=== PATIENT | male | born 1960 | race Caucasian/White ===

== ENCOUNTER 2023-05-07 23:20 | Emergency (ER) | payer SELFPAY ==
[2023-05-07 23:38] VITALS: BP 190/126; PULSE 90; RESP 16; TEMP 36.4; O2SAT 92
--- NOTE | 2023-05-07 23:51 | ED_ITS ---
HPI - Extremity Injury (Upper) General Chief Complaint: Extremity Injury, Upper Stated Complaint: FELL IN HIS HOME Time Seen by Provider: 05/07/23 23:50 Source: patient Mode of arrival: walk-in Limitations: no limitations History of Present Illness HPI narrative: Patient presents to emergency department complaining of right hand injury. Patient states he had been drinking earlier. he did not drink a lot because he was able to drive home. He was trying to help his mother and she had left a laundry basket on the floor which caused him to trip over it. On his way down he started to break the fall by grabbing the dresser and he hit his right 4th digit and to the dresser causing a laceration and deformity. Patient denies hitting his head or any loss consciousness. He denies any other injury. He denies any paresthesias.He denies any weakness. Patient does not take any blood thinners. He denies any neck pain, chest pain, shortness of breath. Denies any lower extremity edema. He denies any flank pain, hematuria, dysuria. He denies any abdominal pain. Patient is nauseated and thinks that he could vomit. His tetanus shot is not up-to-date. Does not remember his medication ALLERGIES. Related Data Previous Rx's Medication Instructions Recorded cephalexin 500 mg capsule 500 mg PO TID 7 days #21 caps 05/08/23 Allergies Allergy/AdvReac Type Severity Reaction Status Date / Time No Known Drug Allergies Allergy Verified 05/07/23 23:53 Review of Systems ROS Status of ROS 10 or more systems reviewed and unremarkable except as noted in history and below Exam Narrative Exam Narrative: Nurses notes and vital signs reviewed and patient is not hypoxic. General: Nontoxic, Well-appearing and in no apparent distress. Skin: Warm, dry, no pallor noted. No Rash Head: Normocephalic, atraumatic. Neck: Supple, non-tender. Eye: Pupils are equal, round and EOMI. No scleral icterus. Ears, Nose, Mouth, and Throat: TM clear,No hemotympanum, no posterior oropharynx erythema or nasal mucosal hypertrophy, uvula is mid-line Oral mucosa is moist Cardiovascular: Regular Rate and Rhythm without murmur, gallop or rub. Respiratory: No accessory muscle use or respiratory distress. Lungs are clear to auscultation, no wheezing, rales or rhonchi Chest Wall: no tenderness Back: No midline thoracic or lumbar vertebral tenderness. No CVA tenderness Musculoskeletal: Or deformity to the right 4th PIP with transverse palmar laceration over the 4th PIP. The proximal joint the bone can be visualized ventrally and the distal aspect is placed dorsally. Range of motion is limited. Capillary refill is brisk. There is no bony tenderness to the proximal fragment. There is no active bleeding. Sensation to the distal thumb, middle finger, ring finger and pinky. no calf or popliteal tenderness, no lower extremity edema/swelling GI: Abdomen is soft, non-distended. Normal bowel sounds. No tenderness to palpation. No rebound, guarding, or rigidity noted. Neurological: A&O x4. No cranial nerve dysfunction observed. No truncal ataxia. Moves all extremities. Sensation intact. Psychiatric: Cooperative and interactive. Normal mood and affect. Constitutional Vital Signs, click to edit/add: Last Vital Signs Temp 97.5 F L 05/07/23 23:38 Pulse 90 05/07/23 23:38 Resp 16 05/07/23 23:38 BP 190/126 H 05/07/23 23:38 Pulse Ox 92 L 05/07/23 23:38 O2 Del Method Room Air 05/07/23 23:38 Course Vital Signs Vital signs: Vital Signs Temperature 97.5 F L 05/07/23 23:38 Pulse Rate 90 05/07/23 23:38 Respiratory Rate 16 05/07/23 23:38 Blood Pressure 190/126 H 05/07/23 23:38 Pulse Oximetry 92 L 05/07/23 23:38 Oxygen Delivery Method Room Air 05/07/23 23:38 Temperature 97.5 F L 05/07/23 23:38 Pulse Rate 90 05/07/23 23:38 Respiratory Rate 16 05/07/23 23:38 Blood Pressure 190/126 H 05/07/23 23:38 Pulse Oximetry 92 L 05/07/23 23:38 Oxygen Delivery Method Room Air 05/07/23 23:38 MDM - Extremity Injury (Upper) MDM Narrative Medical decision making narrative: PROCEDURE:Right 4th pip FINGER CLOSED REDUCTION ?By applying gentle longitudinal traction, I was able to reduce the dislocated finger without much difficulty. Clinically the patient's function was markedly improved. There distal cap refill was less than 2 seconds.?? And the previous aforementioned dislocation, clinically appear to be resolved.?xray reviewed. The patient tolerated the procedure well, and was placed in an AlumaFoam splint. Recommended follow up as we discussed, and return if any issues. Laceration repair. The patient was identified by me. Procedure risks and benefits were discussed with patient and/or family. Area was prepped and draped in a sterile fashion. 1ml lidocaine 1% without epinephrine were injected. wound was inspected in full range of motion. Adequate anesthesia was obtained. 4 sutures, interrupted, nylon 4.0 were used to obtain adequate closure. The edges were well approximated. Antibiotic ointment was applied. Nonstick dressing was applied with pressure gauze and Lenin wrap. Patient is advised the need to follow-up with orthopedic surgeon. He was given 1 g of Ancef and started on Keflex prophylactically at home. The patient has voiced that he will not follow up with any specialist unless he has any compl ication. I've advised the patient this does not in his best interest assistance caused him to have permanent disability, loss of limb or . The patient understands. He will follow up with Belinda stoll. Hi is advised sutures need to be removed in 10 days.Wound care instructions provided to the patient. At this time the patient is without objective evidence of an acute process requiring hospitalization or inpatient management. The patient has remained hemodynamically stable. No additional indication for emergent studies at this time. I answered all questions. Discussed discharge instructions including standard anticipatory guidance and what should prompt a return to the emergency department, including if they get worse are not getting better or develops any new or concerning symptoms. I've given them specific time frame in which to follow-up, and who to follow-up with. The patient demonstrates understanding. Patient is nontoxic and stable for discharge with outpatient follow-up. This note was created with the assistance of a speech recognition program. Although the intention is to generate documents that actually reflects the content of the visit, no guarantees can be provided that every mistake has been identified and corrected by editing. Discharge Plan Discharge Chief Complaint: Extremity Injury, Upper Clinical Impression: Finger laceration with complication, Open dislocation of right ring finger Patient Disposition: Home, Self-Care Time of Disposition Decision: 01:27 Condition: Good Mode of Transportation: Private Vehicle Prescriptions / Home Meds: New cephalexin 500 mg capsule 500 mg PO TID 7 Days Qty: 21 0RF Instructions: Finger Laceration (ED), Finger Dislocation (ED) Additional Instructions: Wound care is discussed. Follow up with the orthopedic surgeon as discussed. Watch for signs of infection. Return to the emergency department with a possible concerns. Sutures need to be removed in 10 days. Stand Alone Forms: Portal Instructions Referrals: Nolan Stoll DO [Primary Care Provider] - 1 week Chago Ott MD [Physician] - 1 week
--- NOTE | 2023-05-07 23:53 | XR_ITS ---
[facility] [id number] Patient Name: ANDRIY BRYSON MRN: [id number] date: 1960 Sex: M Assigned Patient Location: ER Current Patient Location: ED.MAIN Accession/Order Number: [id number] Exam Date: 05/07/2023 23:25 Report Date: 05/08/2023 01:09 At the request of: NANCY LAYNE Procedure: XR hand RT min 3V EXAM: XR hand RT min 3V HISTORY: fall COMPARISON: None. TECHNIQUE: 3 views of the right hand were obtained. FINDINGS: No acute fracture or dislocation is seen. There are mild scattered degenerative changes. There is a radiopaque foreign body within the soft tissues at the ulnar aspect of the carpus. XR/XR hand RT min 3V IMPRESSION: 1. No acute fracture or dislocation of the right hand or fingers is seen. If pain persists, repeat radiographs are recommended in 7-10 days. Electronically authenticated by: Collin PIMENTEL Date: 05/08/2023 01:09
[2023-05-08] MEDS: CEFAZOLIN SODIUM 1,000 MG, WATER FOR INJECTION,STERILE 2.5 ML IM (00:50)
[2023-05-08] MEDS: BACITRACIN 0.9 GM PACKET 1 PACKET TOPICAL (00:50)
[2023-05-08] MEDS: ADACEL DIPH,PERTUSS(ACELL),TET VAC/PF 0.5 ML ADULT SYRINGE IM (00:51)
--- NOTE | 2023-05-08 01:06 | PC.NURSE ---
patient states earlier in the night he was drinking and fell down hitting his right hand against a dresser and then landing on it. patient presents with laceration right middle finger and finger appears bent/dislocated . patient denies any other injuries. denies head injury or LOC. bilateral upper extremity pulses and sensation remain intact. denies any blood thinners. unsure of last tetanus.
== END 2023-05-08 02:02 | disposition home or self-care (01) ==
PROVIDERS: Emergency Provider Emergency Medicine; PCP Internal Medicine
DX: S63.284A Dislocation of proximal interphalangeal joint of right ring finger, initial encounter (principal); S61.214A Laceration without foreign body of right ring finger without damage to nail, initial encounter; Z23 Encounter for immunization; W18.09XA Striking against other object with subsequent fall, initial encounter
CPT/HCPCS: 12001; 26770; 73130; 90471; 90715; 96372; 99284

== ENCOUNTER 2025-09-04 11:37 | Emergency (ER) | payer SELFPAY ==
[2025-09-04] VITALS (91 sets, daily range): BP systolic 138–251; BP diastolic 74–169; PULSE 67–117; TEMP 36.9; O2SAT 90–99; BMI 30.1
--- NOTE | 2025-09-04 11:51 | ECG_ITS ---
[facility] Test Date: 2025-09-04 Pat Name: ANDRIY BRYSON Department: Room: - Gender: Male [place] Head[employer] Operator: : 1960 Requested By: [id number] Order Number: [id number] Reading MD: DAVID TO Measurements Intervals [place] Rate: 113 P: 34 CT: 156 QRS: 31 QRSD: 88 T: 30 QT: 348 QTc: 415 Interpretive Statements 1120 Sinus tachycardia 2420 RSR (QR) in lead V1/V2, consistent with right ventricular conduction delay [address] depression [address] & [place] abnormality 5220 Possible left ventricular hypertrophy 6220 Possible left atrial enlargement 9150 abnormal ECG No previous ECG available for comparison Electronically Signed On 09-04-2025 16:43:22 EST by DAVID TO
--- NOTE | 2025-09-04 11:51 | XR_ITS ---
[facility] [place] [facility] [id number] Patient Name: ANDRIY BRYSON MRN: [id number] date: 1960 Sex: M Assigned Patient Location: ED.MAIN Current Patient Location: ED.MAIN Accession/Order Number: [id number] Exam Date: 09/04/2025 12:18 Report Date: 09/04/2025 12:57 At the request of: ANNE MUÑOZ MD Procedure: XR chest 1V PORTABLE AP ERECT CHEST 1200 hours CLINICAL HISTORY: Chest pain and increased heart rate COMPARISON: None The heart is within normal limits. There is no vascular congestion. The lungs, as visualized, are clear. There is no effusion or pneumothorax. The osseous structures are intact. XR/XR chest 1V IMPRESSION: NO ACUTE FINDINGS Impression dictated by: Vangie Crowe M.D. 09/04/2025 12:57 PM Dictation Location: [facility] Electronically authenticated by: [id number] Y Date: 09/04/2025 12:57
[2025-09-04] MEDS: NITROGLYCERIN 0.4 MG BOTTLE SL (12:08)
[2025-09-04 12:22] LABS: Hematocrit 46.7 % (42.0-54.0); Hemoglobin 16.0 g/dL (14.0-18.0); Immature Granulocytes Abs Auto 0.03 10^3/uL (0.00-0.03); Immature Granulocytes Pct Auto 0.3 % (0.0-0.5); Lymphocytes Absolute Auto 2.1 10^3/uL (1.2-3.8); Mean Corpuscular HGB Conc 34.3 g/dL (29.9-35.2); Mean Corpuscular Hemoglobin 30.5 pg (25.9-34.0); Mean Corpuscular Volume 89.0 fL (80.0-94.0); Platelet Count 249 10^3/uL (150-450); Red Blood Count 5.25 10^6/uL (4.70-6.10); White Blood Count 9.2 10^3/uL (4.0-11.0)
--- NOTE | 2025-09-04 12:22 | ECG_ITS ---
[facility] Test Date: 2025-09-04 Pat Name: ANDRIY BRYSON Department: Room: - Gender: Male Credit Professional: : 1960 Requested By: [id number] Order Number: [id number] Reading MD: DAVID TO Measurements Intervals [place] Rate: 89 P: 36 [place]: 156 QRS: 30 QRSD: 80 T: 39 QT: 390 QTc: 437 Interpretive Statements 1100 Sinus rhythm [address] depression 6220 Possible left atrial enlargement 9150 abnormal ECG Compared to ECG 09/04/2025 11:59:52 Sinus tachycardia no longer present ST (T wave) deviation still present Electronically Signed On 09-04-2025 16:43:24 EST by DAVID TO
[2025-09-04] MEDS: ASPIRIN 81 MG TAB.CHEW 324 MG PO (12:25)
[2025-09-04 12:37] LABS: Alanine Aminotransferase 31 U/L (16-63); Albumin Globulin Ratio 1.1; Albumin Level 4.3 g/dL (3.4-5.0); Alkaline Phosphatase 81 U/L (46-116); Anion Gap 14.3; Aspartate Amino Transferase 27 U/L (15-37); Blood Urea Nitrogen 14.0 mg/dL (7.0-18.0); Calcium 8.9 mg/dL (8.5-10.1); Carbon Dioxide 29.8 mmol/L (21.0-32.0); Chloride 100 mmol/L (98-107); Estimated GFR (African America >60 (>=60 mL/min/1.73m^2); Estimated GFR (Non-African Ame >60 (>=60 mL/min/1.73m^2); Globulin 3.9 g/dL; Glucose 110 mg/dL (74-106); INR 1.04; Magnesium 1.9 mg/dL (1.8-2.4); Potassium 3.1 mmol/L (3.5-5.1); Prothrombin Time 10.9 sec (9.0-11.6); Sodium 141 mmol/L (136-145); Total Protein 8.2 g/dL (6.4-8.2)
[2025-09-04] MEDS: LABETALOL HCL 20 MG/4 ML SYRINGE 10 MG IVP (13:38)
[2025-09-04] MEDS: NICARDIPINE IN NACL, ISO-OSM 40 MG/200 ML PIGGYBACK 25 MG IV ×2 (15:12→22:05)
--- NOTE | 2025-09-04 15:27 | ED_ITS ---
HPI HPI - General Adult General Chief complaint: Arrhythmia/Palpitations Stated complaint: CHEST PAIN Time Seen by Provider: 09/04/25 11:50 Source: patient Mode of arrival: walk-in History of Present Illness HPI narrative: The patient have no previous medical history but he does not actually have a primary care is coming to the ER after he started having his heart racing as well as chest discomfort and right sided neck pain, patient mentioned that he have a history of showing tobacco he does not have any medical history in the family that he knows of of cardiac issues The patient denies any other concerns when asked about headache he mentioned that sometime he will get headaches No specific chest pain at the moment no numbness tingling or any other concerns although he mentions sometime he feels this numbness in the small finger of the left hand that he does not have at the moment Patient mentioned that every time he exerts himself most of the time he will feel this right sided neck pain as well Related Data Home Medications ?Medication ?Instructions ?Recorded ?Confirmed No Known Home Medications 09/04/2508/20 Allergies Allergy/AdvReac Type Severity Reaction Status Date / Time No Known Drug Allergies Allergy Verified 09/04/25 11:47 Review of Systems ROS Status of ROS 10 or more systems reviewed and unremark able except as noted in history and below PFSH PFSH Social History Little interest or pleasure in doing things: not at all Feeling down, depressed, or hopeless: not at all Exam Narrative Exam Narrative: Nurses notes and vital signs reviewed and patient is not hypoxic. General: Well-appearing and in no apparent distress. Skin: Warm, dry, no pallor noted. No rash. Head: Normocephalic, atraumatic. Neck: Supple, non-tender. Cardiovascular: Regular Rate and Rhythm without murmur, gallop or rub. Respiratory: No accessory muscle use or respiratory distress. Lungs are clear to auscultation, no wheezing, rales or rhonchi Chest Wall: no tenderness Back: No midline thoracic or lumbar vertebral tenderness. No CVA tenderness Musculoskeletal: normal ROM, no calf or popliteal tenderness, no lower extremity edema/swelling GI: Abdomen is soft, non-distended. Normal bowel sounds. No masses appreciated. No tenderness to palpation. No rebound, guarding, or rigidity noted. Neurological: A&O x4. No cranial nerve dysfunction observed. No truncal ataxia. Moves all extremities. Sensation intact. Psychiatric: Cooperative and interactive. Normal mood and affect. Constitutional Vital Signs, click to edit/add: Last Vital Signs Temp 98.5 F 09/04/25 11:51 Pulse 98 H 09/04/25 18:40 Resp 15 09/04/25 18:40 BP 147/74 H 09/04/25 18:30 Pulse Ox 97 09/04/25 18:10 O2 Del Method Room Air 09/04/25 12:23 Course Vital Signs Vital signs: Vital Signs Temperature 98.5 F 09/04/25 11:51 Pulse Rate 114 H 09/04/25 11:51 Respiratory Rate 18 09/04/25 11:51 Blood Pressure 232/148 H 09/04/25 11:51 Pulse Oximetry 97 09/04/25 11:51 Oxygen Delivery Method Room Air 09/04/25 11:51 Temperature 98.5 F 09/04/25 11:51 Pulse Rate 98 H 09/04/25 18:40 Respiratory Rate 15 09/04/25 18:40 Blood Pressure 147/74 H 09/04/25 18:30 Pulse Oximetry 97 09/04/25 18:10 Oxygen Delivery Method Room Air 09/04/25 12:23 Medical Decision Making MDM Narrative Medical decision making narrative: On arrival the patient was found to have elevated blood pressure of 230/140 with a manual reading with his EKG showing no ST elevation but it did show some mild subtle ST depression in V5 and V6 The patient had no previous EKG for comparison and initially was started by giving him nitroglycerin to control his symptoms mostly the neck pain on the right that could be cardiac The patient then had had the pain resolved after the first nitro but his blood pressure initially dropped from 230-140 and went back to 190 The patient then his blood pressure went up to the 200s again and the first test of troponin was negative the second 1 went from 20s to 70 I did discuss the case with the telecom specialist on-call and she agreed that we need to control the blood pressure better and also trend the troponin the patient was started on nicardipine to control the blood pressure The third troponin was 170 and that is an elevation from the 70 that the patient had before I did discuss the case with the telecom specialist on-call and she initially recommended further trending of the troponin but after discussion of the case with the hospitalist in our facility commended transfer to [facility] for further cardiac workup Awaiting to discuss the case with the [facility] hospitalist the patient care will be transferred to Dr. Walker Lab Data Labs: Lab Results 09/04/25 09/04/25 09/04/25 Range/Units 12:00 13:25 16:06 WBC 9.2 (4.0-11.0) 10^3/uL RBC 5.25 (4.70-6.10) 10^6/uL Hgb 16.0 (14.0-18.0) g/dL Hct 46.7 (42.0-54.0) % MCV 89.0 (80.0-94.0) fL MCH 30.5 (25.9-34.0) pg MCHC 34.3 (29.9-35.2) g/dL RDW 13.0 (11.0-15.0) % Plt Count 249 (150-450) 10^3/uL MPV 10.5 (9.5-13.5) fL Neut % (Auto) 64.2 (43.0-75.0) % Lymph % (Auto) 22.8 (20.5-60.0) % [place] % (Auto) 9.6 (1.7-12.0) % Eos % (Auto) 2.6 (0.9-7.0) % Baso % (Auto) 0.5 (0.2-2.0) % Neut # (Auto) 5.9 (1.4-6.5) 10^3/uL Lymph # (Auto) 2.1 (1.2-3.8) 10^3/uL [place] # (Auto) 0.9 H (0.3-0.8) 10^3/uL Eos # (Auto) 0.2 (0.0-0.7) 10^3/uL Baso # (Auto) 0.1 (0.0-0.1) 10^3/uL Abs Immat Gran (auto) 0.03 (0.00-0.03) 10^3/uL Imm/Tot Granulo (auto) 0.3 (0.0-0.5) % PT 10.9 (9.0-11.6) sec INR 1.04 Sodium 141 (136-145) mmol/L Potassium 3.1 L (3.5-5.1) mmol/L Chloride 100 (98-107) mmol/L Carbon Dioxide 29.8 (21.0-32.0) mmol/L Anion Gap 14.3 BUN 14.0 (7.0-18.0) mg/dL Creatinine 1.12 (0.70-1.30) mg/dL Est GFR ( Amer) >60 (>=60 mL/min/1.73m^2) Est GFR (Non-Af Amer) >60 (>=60 mL/min/1.73m^2) BUN/Creatinine Ratio 12.5 Glucose 110 H (74-106) mg/dL Calcium 8.9 (8.5-10.1) mg/dL Magnesium 1.9 (1.8-2.4) mg/dL Total Bilirubin 0.6 (0.2-1.0) mg/dL AST 27 (15-37) U/L ALT 31 (16-63) U/L Alkaline Phosphatase 81 (46-116) U/L Troponin I High Sens 27.9 74.8 170.3 H* (4.0-76.1) pg/mL Total Protein 8.2 (6.4-8.2) g/dL Albumin 4.3 (3.4-5.0) g/dL Globulin 3.9 g/dL Albumin/Globulin Ratio 1.1 Discharge Plan Discharge Chief Complaint: Arrhythmia/Palpitations Clinical Impression: Hypertensive emergency, Elevated troponin Patient Disposition: [facility] Time of Disposition Decision: 18:21 Mode of Transportation: EMS
--- NOTE | 2025-09-04 18:03 | PC.NURSE ---
pt resting comfortably in bed at this time. smitha gtt still running, BP WNL. denies any complaints or needs at this time. updated him on possible admission
--- NOTE | 2025-09-04 21:16 | PC.NURSE ---
offered pt something to eat/drink. denies wanting anything at this time, superior will be arriving in approx 30 mins
--- NOTE | 2025-09-04 22:36 | PC.NURSE ---
when called to give BRUCE Erickson, report from [facility] [place] - she said her floor is not able to take a pt with certain drip going. pt had already left this facility. BRUCE Erickson, will be contacting her extrusion press supervisor for an updated room #.
--- NOTE | 2025-09-04 22:52 | PC.NURSE ---
BRUCE Ferrera, called from [facility] [place] to get report on pt at this time
== END 2025-09-04 22:33 | disposition short-term general hospital (02) ==
PROVIDERS: Emergency Medicine; Emergency Provider Internal Medicine; PCP Internal Medicine
DX: I16.1 Hypertensive emergency (principal); R79.89 Other specified abnormal findings of blood chemistry; I10 Essential (primary) hypertension; M54.2 Cervicalgia
CPT/HCPCS: 36415; 71045; 80053; 83735; 84484; 85025; 85610; 93005; 96365; 96366; 96375; 96376; 99285; J1920; J2404